=== PATIENT | female | born 1990 | race Caucasian/White ===

== ENCOUNTER 2019-05-04 03:13 | Inpatient (IN) ==
[2019-05-04] MEDS ORDERED: OXYTOCIN 30 UNITS/500 ML BAG IV PRN ×3 (04:06→21:40)
[2019-05-04] MEDS: LACTATED RINGER'S 1,000 ML IV PRN ×3 (04:28→23:46)
[2019-05-04 04:39] LABS: Basophils # (auto) 0.02 K/uL (0-0.2); Basophils % (auto) 0.2 %; Eosinophils # (auto) 0.02 K/uL (0-0.5); Eosinophils % (auto) 0.2 %; Hematocrit (blood only) 36.4 % (37-47); Hemoglobin 12.5 g/dL (12.0-16.0); Immature Granulocytes # (auto) 0.03 K/uL (0.00-0.02); Immature Granulocytes % (auto) 0.3 %; Lymphocytes # (auto) 2.34 K/uL (1.2-3.4); Mean Corpuscular Volume 87.5 fL (80-100); Mean Platelet Volume 12.7 fL (7.4-10.4); Monocytes # (auto) 0.79 K/uL (0.11-0.59); Monocytes % (auto) 7.4 %; Neutrophils # (auto) 7.46 K/uL (1.4-6.5); Neutrophils % (auto) 69.9 %; Platelet Count 191 K/uL (130-400); RDW Coefficient of Variation 15.2 % (11.5-14.5); RDW Standard Deviation 48.3 fL (36.4-46.3); Red Blood Count 4.16 M/uL (4.2-5.4); White Blood Count 10.66 K/uL (4.8-10.8)
[2019-05-04 04:52] LABS: INR 0.9 (0.9-1.1); Partial Thromboplastin Ratio 0.9; Partial Thromboplastin Time 25.4 Seconds (21.0-31.0); Prothrombin Time 9.3 Seconds (9.0-12.0)
[2019-05-04 04:54] LABS: Mean Corpuscular Hgb Conc 34.3 g/dL (32-36)
[2019-05-04 04:58] LABS: Alanine Aminotransferase 14 U/L (12-78); Albumin Level 2.6 gm/dl (3.4-5.0); Aspartate Aminotransferase 23 U/L (15-37); Bilirubin Direct < 0.1 mg/dl (0-0.2); Creatinine Clr Calc Pharmacy 95.1 ml/min; Est GFR (African American) 96.4; Est GFR (Non-African American) 83.1; Uric Acid 6.8 mg/dl (2.6-7.2)
[2019-05-04 05:00] LABS: Protein Creatinine Ratio Urine 11.2 (0-0.2); Total Protein Urine Random 2499.6 mg/dl (0-11.9)
[2019-05-04 05:00] LABS: Alkaline Phosphatase 206 U/L (45-117); Bilirubin,Total 0.1 mg/dl (0.2-1); Total Protein 7.1 gm/dl (6.4-8.2)
[2019-05-04] MEDS ORDERED: MAGNESIUM SULFATE 4GM / WTR 100 ML BAG IV ONE (05:20)
[2019-05-04] MEDS ORDERED: BUPIVACAINE 0.25% 30 ML VIAL ONE (05:41)
[2019-05-04] MEDS ORDERED: ePHEDrine sulfate 50 MG/ML AMP ONE (05:41)
[2019-05-04] MEDS ORDERED: fentaNYL citrate 100 MCG/2 ML VIAL ONE (05:42)
[2019-05-04] MEDS ORDERED: fentaNYL 2MCG/ML ROPIV 1.25MG/ML 100 ML BAG EPI ONE (05:42)
--- NOTE | 2019-05-04 05:54 | History & Physical Report ---
Date of Service May 04, 2019 Assessment & Plan (1) Supervision of normal intrauterine in primigravida: - heart rate tracing category 1 -Patient with elevated blood pressure on admission, +3 protein -Preeclamptic labs drawn, creatinine 0.94, urine protein to creatinine ratio 11. 2 -Patient with preeclampsia -Discussed diagnosis with patient and because of the blood pressure and high proteinuria magnesium will be ordered -Patient desires epidural, anesthesia aware of diagnosis and laboratory results -Anticipate vaginal delivery History of Present Illness Chief Complaint: labor Primary Care Provider: NO PCP The patient is a 29-year-old 1 para 0 with an EDC of 26 April at 41+ weeks gestational age who was admitted in active labor. Patient states her contractions began at approximately 0100 hrs. on day of admission, she denied rupture of membranes or vaginal bleeding. The patient was not complaining of any headache, or right upper quadrant pain. The patient had had a benign course to date. Laboratory values show blood type of O+, antibody negative, rubella immune, hepatitis B negative, she declined cell free DNA screening, declined quad screen, she had a normal 1 hour Glucola x2, and a negative third trimester beta strep culture. 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 Beliefs That Will Affect Care: None marital status: Current Living Situation: Spouse Other Information That Helps Us Care for You: No Feels Safe at Home: Yes Safety Concerns: Feels Safe At This Time Smoking Status: Never smoker Hx Alcohol Use: No Hx Substance Use: No Physical Exam Constitutional: WD/WN, vitals as above Respiratory: Auscultation: lungs clear to auscultation bilaterally Cardiovascular: RRR, no murmur, no edema Extremities: no calf tenderness Gastrointestinal (Abdomen): Gravid, vertex, positive heart tones, estimated weight of 7 pounds Neurologic: patellar DTR's 2+ bilat, sensation intact Genitourinary: OB Exam Monitor Tracing: + category II and + normal FHT variability Cervix: 2-3/80/-2 Results & Data Vital Signs (Past 12 Hours) Vital Signs Temp Pulse Resp BP Pulse Ox 05/04/19 05:45 84 98 05/04/19 05:40 96 H 100 05/04/19 05:26 61 169/80 H 05/04/19 05:15 67 161/78 H 05/04/19 05:04 94 H 169/89 H 05/04/19 04:54 91 H 161/88 H 05/04/19 04:44 66 154/81 H 05/04/19 04:36 70 168/65 H 05/04/19 04:24 67 167/92 H 05/04/19 04:14 65 172/92 H 05/04/19 04:04 75 170/97 H 05/04/19 03:54 71 175/109 H 05/04/19 03:43 66 173/103 H 05/04/19 03:37 36.5 C 67 20 172/98 H
--- NOTE | 2019-05-04 06:03 | Anesthesiology Consultation ---
Date of Service May 04, 2019 Assessment & Plan (1) Encounter for pre-operative examination: Chart Review Chart Review: Patient NOT seen in Pre Admission Testing and Acceptable Risk for Labor Epidural Consults Requested medical & cardiac Pulmonary ASA ASA2 Proposed Anesthesia Anesthesia Type: Labor Epidural Risk / Benefits Reviewed With: PT / POA / Parent / Guardian, Accepts Plan and Informed Consent Obtained History Height/Weight Height: 5 ft 5 in Weight: 82.1 kg Allergies Allergy/AdvReac Type Severity Reaction Status Date / Time No Known Allergies Allergy Unverified 05/04/19 03:30 Medications Home Medications Medication Instructions Recorded Confirmed Last Taken ferrous sulfate [iron] 325 mg PO DAILY 05/04/19 05/04/19 05/03/19 08:00 vit-iron fum-folic ac 1 tab PO DAILY 05/04/19 05/04/19 05/03/19 08:00 [ Vitamin] Active Medications Generic Name Dose Route Start Last Admin Trade Name Freq PRN Reason Stop Dose Admin Lactated Ringer's 1,000 mls @ 125 mls/hr 05/04/19 04:06 05/04/19 06:58 Lr IV 05/06/19 04:05 75 mls/hr .Q8H PRN Infusion L&D Protocol Protocol Magnesium Sulfate 40 gm in 1,000 mls @ 50 mls/hr 05/04/19 06:15 05/04/19 06:58 Magnesium Sulfate / Wtr IV 06/03/19 06:14 50 mls/hr .Q20H VILLA Titration NPO Date Last Intake of Fluids: 05/04/19 Time Last Intake of Fluids: 06:00 Date Last Intake of Solids: 05/03/19 Time Last Intake of Solids: 19:30 Past Medical History Medical History Preeclampsia Exercise / Class Metabolic Activity II 4-5 Yardwork/Stairs/Walk up hill Past Surgical History Surgical History No history of previous surgery Past Anesthesia History No Family Hx of Anesthesia Complications History of PONV Hx of Motion Sickness Social History Smoking Status: Never smoker Hx Alcohol Use: No Hx Substance Use: No substance use type: does not use Review of Systems Patient denies history of abnormal bleeding or bleeding disorder. Patient denies active use of anticoagulants other than low dose aspirin. Patient denies active symptoms of GERD. Patient denies numbness, tingling or weakness in lower extremities. Physical Exam Vital Signs Last Vital Signs Temp 36.5 C 05/04/19 03:37 Pulse 108 H 05/04/19 05:55 Resp 20 05/04/19 05:53 BP 169/80 H 05/04/19 05:26 Pulse Ox 100 05/04/19 05:55 Constitutional not obese ENMT Mouth: no TMJ abnormality and oral opening not small Thyromental Distance: > or= 3.5 Finger Breadths Mallampati Class: II Neck normal visual inspection; neck extension not limited Respiratory normal respiratory effort Auscultation: lungs clear to auscultation bilaterally Cardiovascular Rate/Rhythm: regular rate and regular rhythm Heart Sounds: no murmur Neurologic moves all extremities Motor/Sensory: no sensory deficit Psychiatric Orientation: alert and oriented x 3 Testing Laboratory Results 05/04/19 04:21 05/04/19 04:21 PT 9.3 Seconds (9.0-12.0) 05/04/19 04:21 INR 0.9 (0.9-1.1) 05/04/19 04:21 APTT 25.4 Seconds (21.0-31.0) 05/04/19 04:21
[2019-05-04] MEDS ORDERED: Nursing to Pharmacy Communication ONE ×2 (06:11→16:41)
[2019-05-04] MEDS: MAGNESIUM SULFATE / WTR 40 GM/1,000 ML BAG IV SCH (06:23)
[2019-05-04] MEDS ORDERED: ONDANSETRON INJ 2 MG/ML 2 ML VIAL IV PRN (07:03)
[2019-05-04] MEDS ORDERED: NALBUPHINE HCL INJ 10 MG/ML AMP IV PRN (07:03)
[2019-05-04] MEDS ORDERED: ePHEDrine sulfate 50 MG/ML AMP IV PRN (07:03)
[2019-05-04] MEDS ORDERED: NALOXONE HCL 1 MG in SODIUM CHLORIDE 0.9% 1000ML 1,000 ML IV PRN (07:03)
[2019-05-04] MEDS ORDERED: NALOXONE HCL 0.4 MG/1 ML VIAL/CARP IV PRN (07:03)
[2019-05-04] MEDS ORDERED: DiphenhydrAMINE HCL 50 MG/ML VIAL IV PRN (07:03)
--- NOTE | 2019-05-04 10:42 | Obstetrical Progress Note ---
Date of Service May 04, 2019 Subjective Comfortable with epidural. BP ok. FHT Cat 1 [place] Q 5 min Cervix 4/90/-2 Will start pitocin to augment ctx. Patient agreeable. Results & Data Vital Signs (Past 12 Hours) Vital Signs Temp Pulse Resp BP Pulse Ox 05/04/19 10:40 91 H 97 05/04/19 10:35 98 H 98 05/04/19 10:32 85 133/77 05/04/19 10:30 89 97 05/04/19 10:25 91 H 97 05/04/19 10:20 94 H 97 05/04/19 10:19 91 H 132/78 05/04/19 10:15 104 H 98 05/04/19 10:10 96 H 98 05/04/19 10:05 97 H 98 05/04/19 10:02 90 18 147/86 H 05/04/19 10:00 84 96 05/04/19 09:55 89 96 05/04/19 09:50 91 H 95 05/04/19 09:48 85 150/88 H 05/04/19 09:45 86 95 05/04/19 09:40 90 96 05/04/19 09:35 96 H 96 05/04/19 09:34 85 149/84 H 05/04/19 09:30 94 H 96 05/04/19 09:25 89 97 05/04/19 09:20 88 97 05/04/19 09:18 90 142/84 H 05/04/19 09:15 88 97 05/04/19 09:10 87 98 05/04/19 09:09 18 05/04/19 09:05 89 97 05/04/19 09:04 84 143/83 H 05/04/19 09:00 89 98 05/04/19 08:55 94 H 97 05/04/19 08:50 77 95 05/04/19 08:47 80 138/78 05/04/19 08:45 77 95 05/04/19 08:40 79 96 05/04/19 08:35 77 95 05/04/19 08:33 76 134/75 05/04/19 08:30 77 95 05/04/19 08:25 80 95 05/04/19 08:20 76 94 05/04/19 08:19 74 94 05/04/19 08:17 77 132/73 07/01/19 08:15 71 96 05/04/19 08:13 70 94 05/04/19 08:10 75 95 05/04/19 08:08 73 94 05/04/19 08:05 73 96 05/04/19 08:04 72 133/72 05/04/19 08:02 71 94 05/04/19 08:00 81 18 95 05/04/19 07:56 77 94 05/04/19 07:55 77 95 05/04/19 07:50 76 95 05/04/19 07:47 81 123/76 05/04/19 07:45 80 95 05/04/19 07:40 84 95 05/04/19 07:39 84 93 05/04/19 07:35 85 96 05/04/19 07:32 82 143/81 H 05/04/19 07:30 92 H 96 05/04/19 07:29 87 135/77 05/04/19 07:26 85 140/81 05/04/19 07:25 93 H 97 05/04/19 07:23 94 H 135/72 05/04/19 07:20 88 142/76 H 97 05/04/19 07:17 92 H 145/77 H 05/04/19 07:15 96 H 96 05/04/19 07:14 108 H 16 138/63 05/04/19 07:11 97 H 144/75 H 05/04/19 07:10 101 H 96 05/04/19 07:08 36.8 C 100 H 16 140/72 05/04/19 07:05 105 H 144/70 H 96 05/04/19 07:04 97 H 94 05/04/19 07:02 100 H 145/69 H 05/04/19 07:00 96 H 95 05/04/19 06:59 98 H 141/68 H 05/04/19 06:56 94 H 142/74 H 05/04/19 06:55 94 H 96 05/04/19 06:53 94 H 16 137/77 05/04/19 06:50 83 136/76 96 05/04/19 06:47 81 18 145/82 H 05/04/19 06:45 75 97 05/04/19 06:44 80 155/86 H 07/01/19 06:41 72 18 159/91 H 05/04/19 06:40 70 94 05/04/19 06:38 71 157/91 H 05/04/19 06:35 75 20 158/92 H 87 L 05/04/19 06:32 74 157/95 H 05/04/19 06:30 77 95 05/04/19 06:25 112 H 98 05/04/19 06:22 74 94 05/04/19 06:21 71 18 158/82 H 05/04/19 06:20 87 97 05/04/19 06:15 72 96 05/04/19 06:10 74 98 05/04/19 06:05 76 161/84 H 94 05/04/19 06:04 20 05/04/19 06:00 109 H 100 05/04/19 05:59 74 163/84 H 05/04/19 05:55 108 H 100 05/04/19 05:53 20 05/04/19 05:50 78 99 05/04/19 05:45 84 98 05/04/19 05:40 96 H 100 05/04/19 05:26 61 169/80 H 05/04/19 05:15 67 161/78 H 05/04/19 05:04 94 H 169/89 H 05/04/19 04:54 91 H 161/88 H 05/04/19 04:44 66 154/81 H 05/04/19 04:36 70 168/65 H 05/04/19 04:24 67 167/92 H 05/04/19 04:14 65 172/92 H 05/04/19 04:04 75 170/97 H 05/04/19 03:54 71 175/109 H 05/04/19 03:43 66 173/103 H 05/04/19 03:37 36.5 C 67 20 172/98 H
[2019-05-04] MEDS: fentaNYL 2MCG/ML ROPIV 1.25MG/ML 100 ML BAG EPI PRN ×2 (13:46→18:31)
--- NOTE | 2019-05-04 16:52 | Obstetrical Progress Note ---
Date of Service May 04, 2019 Subjective Uncomfortable with contractions. FHT Cat 1 [place] Q 4 SVE 9/100/-1. Forebag AROM'd with thin mec staining. Results & Data Vital Signs (Past 12 Hours) Vital Signs Temp Pulse Resp BP Pulse Ox 05/04/19 16:50 101 H 98 05/04/19 16:47 100 H 133/91 05/04/19 16:45 109 H 98 05/04/19 16:40 103 H 97 05/04/19 16:35 92 H 87 L 05/04/19 16:34 92 H 133/95 05/04/19 16:30 93 H 87 L 05/04/19 16:25 110 H 97 05/04/19 16:20 98 H 96 05/04/19 16:19 100 H 146/87 H 05/04/19 16:15 93 H 96 05/04/19 16:11 92 H 87 L 05/04/19 16:10 105 H 97 05/04/19 16:05 115 H 97 05/04/19 16:03 101 H 157/93 H 05/04/19 16:01 97 H 87 L 05/04/19 16:00 95 H 96 05/04/19 15:55 106 H 96 05/04/19 15:50 114 H 97 05/04/19 15:48 113 H 165/101 H 05/04/19 15:45 115 H 99 05/04/19 15:40 121 H 98 05/04/19 15:35 110 H 96 05/04/19 15:33 105 H 16 146/95 H 05/04/19 15:30 103 H 95 05/04/19 15:25 105 H 96 05/04/19 15:20 102 H 96 05/04/19 15:17 100 H 161/83 H 05/04/19 15:16 102 H 182/88 H 05/04/19 15:15 104 H 96 05/04/19 15:10 107 H 97 05/04/19 15:07 36.5 C 16 05/04/19 15:05 102 H 98 05/04/19 15:03 100 H 158/90 H 05/04/19 15:00 98 H 16 96 05/04/19 14:55 95 H 97 05/04/19 14:50 101 H 98 05/04/19 14:48 95 H 143/89 H 05/04/19 14:45 94 H 98 05/04/19 14:40 95 H 98 05/04/19 14:35 99 H 98 05/04/19 14:33 97 H 16 153/88 H 05/04/19 14:30 95 H 98 05/04/19 14:25 95 H 98 05/04/19 14:20 94 H 96 05/04/19 14:19 95 H 141/84 H 05/04/19 14:15 93 H 97 05/04/19 14:10 97 H 98 05/04/19 14:05 92 H 97 05/04/19 14:02 90 18 143/86 H 05/04/19 14:00 92 H 98 05/04/19 13:55 96 H 97 05/04/19 13:50 100 H 98 05/04/19 13:45 96 H 98 05/04/19 13:40 92 H 97 05/04/19 13:35 93 H 97 05/04/19 13:34 91 H 18 142/88 H 05/04/19 13:30 93 H 97 05/04/19 13:25 93 H 97 05/04/19 13:20 95 H 97 05/04/19 13:17 95 H 141/88 H 05/04/19 13:15 97 H 98 05/04/19 13:10 92 H 98 05/04/19 13:05 93 H 97 05/04/19 13:03 36.7 C 95 H 18 140/89 05/04/19 13:00 95 H 97 05/04/19 12:55 97 H 97 05/04/19 12:50 91 H 97 05/04/19 12:49 96 H 147/92 H 05/04/19 12:45 94 H 97 05/04/19 12:40 101 H 97 05/04/19 12:35 96 H 97 05/04/19 12:33 98 H 165/100 H 05/04/19 12:30 104 H 18 98 05/04/19 12:25 101 H 97 05/04/19 12:20 104 H 98 05/04/19 12:17 102 H 143/89 H 05/04/19 12:15 103 H 98 05/04/19 12:10 90 96 05/04/19 12:05 95 H 97 05/04/19 12:02 92 H 137/75 05/04/19 12:00 95 H 18 97 05/04/19 11:55 86 96 05/04/19 11:50 94 H 97 05/04/19 11:47 90 134/76 05/04/19 11:45 87 96 05/04/19 11:40 94 H 97 05/04/19 11:35 95 H 97 05/04/19 11:33 86 129/75 05/04/19 11:30 97 H 97 05/04/19 11:25 94 H 97 05/04/19 11:20 96 H 97 05/04/19 11:17 98 H 133/82 05/04/19 11:15 89 97 05/04/19 11:10 90 97 05/04/19 11:05 92 H 97 05/04/19 11:03 36.7 C 86 18 130/75 05/04/19 11:00 92 H 97 05/04/19 10:55 93 H 97 05/04/19 10:50 92 H 97 05/04/19 10:47 86 129/74 05/04/19 10:45 87 97 05/04/19 10:40 91 H 97 05/04/19 10:35 98 H 98 05/04/19 10:32 85 18 133/77 05/04/19 10:30 89 97 05/04/19 10:25 91 H 97 05/04/19 10:20 94 H 97 05/04/19 10:19 91 H 132/78 05/04/19 10:15 104 H 98 05/04/19 10:10 96 H 98 05/04/19 10:05 97 H 98 05/04/19 10:02 36.7 C 90 18 147/86 H 05/04/19 10:00 84 96 05/04/19 09:55 89 96 05/04/19 09:50 91 H 95 05/04/19 09:48 85 150/88 H 05/04/19 09:45 86 95 05/04/19 09:40 90 96 05/04/19 09:35 96 H 96 05/04/19 09:34 85 149/84 H 05/04/19 09:30 94 H 96 05/04/19 09:25 89 97 05/04/19 09:20 88 97 05/04/19 09:18 90 142/84 H 05/04/19 09:15 88 97 05/04/19 09:10 87 98 05/04/19 09:09 18 05/04/19 09:05 89 97 05/04/19 09:04 84 18 143/83 H 05/04/19 09:00 89 98 05/04/19 08:55 94 H 97 05/04/19 08:50 77 95 05/04/19 08:47 80 138/78 05/04/19 08:45 77 95 05/04/19 08:40 79 96 05/04/19 08:35 77 95 05/04/19 08:33 76 16 134/75 05/04/19 08:30 77 95 05/04/19 08:25 80 95 05/04/19 08:20 76 94 05/04/19 08:19 74 94 05/04/19 08:17 77 16 132/73 05/04/19 08:15 71 96 05/04/19 08:13 70 94 05/04/19 08:10 75 95 05/04/19 08:08 73 94 05/04/19 08:05 73 96 05/04/19 08:04 72 16 133/72 05/04/19 08:02 71 94 05/04/19 08:00 81 18 95 05/04/19 07:56 77 94 05/04/19 07:55 77 95 05/04/19 07:50 76 95 05/04/19 07:47 81 123/76 05/04/19 07:45 80 95 05/04/19 07:40 84 95 05/04/19 07:39 84 93 05/04/19 07:35 85 96 05/04/19 07:32 82 16 143/81 H 05/04/19 07:30 92 H 96 05/04/19 07:29 87 135/77 05/04/19 07:26 85 140/81 05/04/19 07:25 93 H 97 05/04/19 07:23 94 H 135/72 05/04/19 07:20 88 142/76 H 97 05/04/19 07:17 92 H 145/77 H 05/04/19 07:15 96 H 96 05/04/19 07:14 108 H 16 138/63 07/01/19 07:11 97 H 144/75 H 05/04/19 07:10 101 H 96 05/04/19 07:08 36.8 C 100 H 16 140/72 05/04/19 07:05 105 H 144/70 H 96 05/04/19 07:04 97 H 94 05/04/19 07:02 100 H 145/69 H 05/04/19 07:00 96 H 95 05/04/19 06:59 98 H 141/68 H 05/04/19 06:56 94 H 142/74 H 05/04/19 06:55 94 H 96 05/04/19 06:53 94 H 16 137/77 05/04/19 06:50 83 136/76 96 05/04/19 06:47 81 18 145/82 H 05/04/19 06:45 75 97 05/04/19 06:44 80 155/86 H 05/04/19 06:41 72 18 159/91 H 05/04/19 06:40 70 94 05/04/19 06:38 71 157/91 H 05/04/19 06:35 75 20 158/92 H 87 L 05/04/19 06:32 74 157/95 H 05/04/19 06:30 77 95 05/04/19 06:25 112 H 98 05/04/19 06:22 74 94 05/04/19 06:21 71 18 158/82 H 05/04/19 06:20 87 97 05/04/19 06:15 72 96 05/04/19 06:10 74 98 05/04/19 06:05 76 161/84 H 94 05/04/19 06:04 20 05/04/19 06:00 109 H 100 05/04/19 05:59 74 163/84 H 05/04/19 05:55 108 H 100 05/04/19 05:53 20 05/04/19 05:50 78 99 05/04/19 05:45 84 98 05/04/19 05:40 96 H 100 05/04/19 05:26 61 169/80 H 05/04/19 05:15 67 161/78 H 05/04/19 05:04 94 H 169/89 H 05/04/19 04:54 91 H 161/88 H
--- NOTE | 2019-05-04 21:00 | Anesthesia Procedure Note ---
Date of Service May 04, 2019 Anesthesia Post Epidural Note Vital Signs Vital Signs: Temp Pulse Resp BP Pulse Ox 36.6 C 103 H 18 153/87 H 96 05/04/19 19:21 05/04/19 20:55 05/04/19 20:30 05/04/19 20:47 05/04/19 20:55 Pain Intensity Bilateral Abdomen: Pain Intensity: 2 Notes Mental Status: alert / awake / arousable and participated in evaluation Nausea / Vomiting: adequately controlled Pain: adequately controlled Airway Patency, RR, SpO2: stable & adequate BP & HR: stable & adequate Hydration State: stable & adequate Neuraxial Anesthesia: was administered and sensory block is resolving Anesthetic Complications: no major complications apparent Epidural: Removed without complications and With tip intact
--- NOTE | 2019-05-04 21:08 | Procedure Note ---
Vaginal Delivery Summary Date of Service May 04, 2019 Vaginal Delivery Summary Vaginal Delivery Summary: Pre-delivery diagnoses: 29yo @ 41 1/7, spontaneous labor, preeclampsia with severe features (BP severe range) Post-delivery diagnoses: same + 2nd degree perineal laceration Procedure: spontaneous vaginal delivery, repair of 2nd degree perineal laceration Surgeon: Maribel Ridley DO Complications: none Findings: Viable female . Apgars: 8/9 . Weight pending, please see nursery records Estimated blood loss: 300ml Description of delivery: The patient progressed to complete with epidural anesthesia. She then began to push. She spontaneously vaginally delivered a viable female from the cephalic presentation. The head delivered in TONE position. No nuchal cord noted. The anterior shoulder delivered, followed by the posterior shoulder, followed by the body. The baby was placed on mother's abdomen and a spontaneous cry was heard. The cord was doubly clamped and cut, and the baby was handed off to waiting nursery nurse. A segment was retained for cord gases. Cord blood was obtained. The placenta was delivered spontaneously intact with a 3-vessel cord. The uterus and vagina were swept of clots and debris. IV pitocin was given. The uterus became firm. The cervix, vagina, and perineum were inspected and a 2nd degree perineal laceration was noted, and a right vaginal sulcal tear. Both were repaired in standard fashion with 3-0 vicryl. Excellent hemostasis was observed. The mother and baby are recovering in stable and good condition in the room. Sponge, needle, and instrument counts were correct x 2. Maribel Ridley DO [facility]
[2019-05-04] MEDS ORDERED: BENZOCAINE 20% AER SPR 82.5 GM CAN EXT PRN (21:40)
[2019-05-04] MEDS ORDERED: HYDROCORTISONE ACETATE 25 MG SUPP PR PRN (21:40)
[2019-05-04] MEDS ORDERED: SUPERCREAM 0.870% 15 GM JAR EXT PRN (21:40)
[2019-05-04] MEDS ORDERED: ACETAMINOPHEN 325 MG TAB PO PRN (21:40)
[2019-05-04] MEDS ORDERED: OXYCODONE/ACETAMINOPHEN 5mg/325mg TAB PO PRN (21:40)
[2019-05-04] MEDS ORDERED: DIPHTHERIA/TETANUS/PERTUSSIS 0.5 ML SYR/VIAL IM ONE (21:40)
[2019-05-04] MEDS ORDERED: BISACODYL 10 MG SUPP PR PRN (21:40)
[2019-05-04] MEDS ORDERED: LABETALOL HCL IV 5 MG/ML 20ML IV STA (21:41)
[2019-05-04] MEDS ORDERED: CEFAZOLIN 1000MG 1,000 MG/7.5 ML SYR IV SCH (22:15)
[2019-05-05 00:35] LABS: Hemoglobin 11.4 g/dL (12.0-16.0); Mean Corpuscular Hgb Conc 33.5 g/dL (32-36); Mean Platelet Volume 12.8 fL (7.4-10.4); Platelet Count 200 K/uL (130-400); RDW Coefficient of Variation 15.6 % (11.5-14.5); RDW Standard Deviation 49.3 fL (36.4-46.3); Red Blood Count 3.91 M/uL (4.2-5.4)
[2019-05-05 01:02] LABS: Albumin Globulin Ratio 0.5 (0.9-2); Albumin Level 2.1 gm/dl (3.4-5.0); Bilirubin,Total 0.3 mg/dl (0.2-1); Calcium 7.1 mg/dl (8.5-10.1); Est GFR (African American) 67.6; Est GFR (Non-African American) 58.3; Globulin 3.8 gm/dl (2.5-4.0); Magnesium Therapeutic L&D Only 7.2 mg/dL (4.0-8.0); Potassium 3.6 mmol/L (3.5-5.1); Total Protein 5.9 gm/dl (6.4-8.2)
[2019-05-05] MEDS: IBUPROFEN 600 MG TAB PO PRN ×2 (02:09→16:40)
[2019-05-05 06:50] LABS: Hematocrit (blood only) 28.4 % (37-47); Hemoglobin 9.6 g/dL (12.0-16.0); Mean Corpuscular Hgb Conc 33.8 g/dL (32-36); Mean Corpuscular Volume 86.6 fL (80-100); Mean Platelet Volume 12.2 fL (7.4-10.4); Platelet Count 182 K/uL (130-400); RDW Coefficient of Variation 15.7 % (11.5-14.5); RDW Standard Deviation 50.3 fL (36.4-46.3); Red Blood Count 3.28 M/uL (4.2-5.4); White Blood Count 19.07 K/uL (4.8-10.8)
[2019-05-05] MEDS: PRENATAL VITAMIN 1 TAB PO SCH (07:24)
[2019-05-05] MEDS: DOCUSATE SODIUM 100 MG CAP PO SCH ×2 (07:24→20:28)
[2019-05-05 07:26] LABS: Albumin Level 1.8 gm/dl (3.4-5.0); BUN Creatinine Ratio 15.8 (10-20); Calcium 6.9 mg/dl (8.5-10.1); Creatinine Clr Calc Pharmacy 88.5 ml/min; Est GFR (African American) 88.3; Est GFR (Non-African American) 76.2; Magnesium Therapeutic L&D Only 6.1 mg/dL (4.0-8.0); Potassium 3.8 mmol/L (3.5-5.1)
[2019-05-05 07:28] LABS: Albumin Globulin Ratio 0.5 (0.9-2); Bilirubin,Total 0.3 mg/dl (0.2-1); Globulin 3.3 gm/dl (2.5-4.0); Total Protein 5.1 gm/dl (6.4-8.2)
--- NOTE | 2019-05-05 07:43 | Obstetrical Progress Note ---
Date of Service May 05, 2019 Assessment & Plan (1) Vaginal delivery: PPD#1 doing well. Magnesium continues. BP has been normal since last night, rec'd 1 dose labetalol IV 20mg last night. Labs are trending normal - platelets/LFTs normal, and Cr was 1.26 last night, today is 1.01. Good urine output. Continue routine and preeclampsia care. Subjective Ambulation: limited ambulation Voiding: aguirre catheter in place Passing Gas:: Yes Diet Tolerance:: clear liquids Lochia:: Moderate Feeding Type:: breast feeding Feeling well - no concerns. Feels like she is breathing well, denies chest pain/headache. Review of Systems All systems reviewed & are unremarkable except as noted in HPI & below Physical Exam Gen: AAOx3 NAD CV: RRR L: CTAB Abd: soft, NTTP. fundus firm, below umbilicus. Ext: EPCs on, 1+ edema. 2+ DTR Results & Data Vital Signs (Past 12 Hours) Vital Signs Temp Pulse Resp BP Pulse Ox 05/05/19 07:38 91 H 99 05/05/19 07:33 90 98 05/05/19 07:28 91 H 97 05/05/19 07:23 92 H 98 05/05/19 07:18 89 98 05/05/19 07:13 99 H 97 05/05/19 07:08 96 H 98 05/05/19 07:05 91 H 126/74 05/05/19 07:03 93 H 97 05/05/19 06:58 93 H 97 05/05/19 06:53 91 H 96 05/05/19 06:48 92 H 96 05/05/19 06:43 96 H 96 05/05/19 06:38 99 H 97 05/05/19 06:33 89 96 05/05/19 06:28 97 H 96 05/05/19 06:23 90 94 05/05/19 06:18 97 H 95 05/05/19 06:13 94 H 95 05/05/19 06:08 89 95 05/05/19 06:05 89 135/70 05/05/19 06:03 92 H 94 05/05/19 06:00 18 05/05/19 05:58 91 H 94 05/05/19 05:53 91 H 94 05/05/19 05:48 95 H 94 05/05/19 05:43 91 H 94 05/05/19 05:38 89 94 05/05/19 05:33 92 H 94 05/05/19 05:28 94 H 95 05/05/19 05:23 93 H 95 05/05/19 05:18 101 H 98 05/05/19 05:13 101 H 98 05/05/19 05:08 101 H 97 05/05/19 05:05 100 H 132/73 05/05/19 05:03 104 H 97 05/05/19 05:00 18 05/05/19 04:58 101 H 96 05/05/19 04:53 103 H 97 05/05/19 04:48 100 H 97 05/05/19 04:43 100 H 96 05/05/19 04:38 109 H 96 05/05/19 04:33 101 H 96 05/05/19 04:28 93 H 95 05/05/19 04:23 92 H 95 05/05/19 04:18 92 H 94 05/05/19 04:13 92 H 95 05/05/19 04:08 91 H 95 05/05/19 04:05 90 114/56 L 05/05/19 04:03 93 H 95 05/05/19 04:00 36.9 C 18 05/05/19 03:58 94 H 96 05/05/19 03:53 101 H 96 05/05/19 03:48 103 H 97 05/05/19 03:43 98 H 96 05/05/19 03:38 96 H 96 05/05/19 03:33 103 H 98 05/05/19 03:28 107 H 96 05/05/19 03:23 109 H 96 05/05/19 03:18 109 H 96 05/05/19 03:13 112 H 97 05/05/19 03:08 109 H 96 05/05/19 03:05 112 H 134/71 05/05/19 03:03 114 H 97 05/05/19 03:00 18 05/05/19 02:58 113 H 97 05/05/19 02:53 117 H 97 05/05/19 02:48 119 H 97 05/05/19 02:43 123 H 99 05/05/19 02:38 112 H 97 05/05/19 02:33 117 H 98 05/05/19 02:28 118 H 99 05/05/19 02:23 122 H 100 05/05/19 02:18 118 H 99 05/05/19 02:13 103 H 100 05/05/19 02:08 104 H 100 05/05/19 02:05 106 H 140/83 05/05/19 02:03 107 H 100 05/05/19 02:00 18 05/05/19 01:58 103 H 100 05/05/19 01:53 91 H 99 05/05/19 01:48 92 H 99 05/05/19 01:43 94 H 100 05/05/19 01:38 95 H 100 05/05/19 01:33 91 H 99 05/05/19 01:28 97 H 99 05/05/19 01:20 96 H 98 05/05/19 01:15 96 H 98 05/05/19 01:10 97 H 98 05/05/19 01:05 97 H 98 05/05/19 01:02 97 H 132/73 05/05/19 01:00 96 H 18 98 05/05/19 00:55 96 H 98 05/05/19 00:50 97 H 98 05/05/19 00:47 95 H 128/74 05/05/19 00:45 105 H 99 05/05/19 00:40 96 H 98 05/05/19 00:35 95 H 98 05/05/19 00:32 95 H 121/69 05/05/19 00:30 95 H 97 05/05/19 00:25 95 H 97 05/05/19 00:20 94 H 98 05/05/19 00:17 91 H 123/69 05/05/19 00:15 95 H 98 05/05/19 00:10 93 H 99 05/05/19 00:05 96 H 99 05/05/19 00:02 97 H 133/75 05/05/19 00:00 97 H 18 100 05/04/19 23:55 100 H 100 05/04/19 23:50 100 H 100 05/04/19 23:47 98 H 139/81 05/04/19 23:45 102 H 100 05/04/19 23:40 101 H 99 05/04/19 23:35 102 H 100 05/04/19 23:32 100 H 147/81 H 05/04/19 23:30 99 H 100 05/04/19 23:25 98 H 100 05/04/19 23:20 90 99 05/04/19 23:17 93 H 143/80 H 05/04/19 23:15 100 H 98 05/04/19 23:10 96 H 99 05/04/19 23:05 36.9 C 94 H 99 05/04/19 23:03 95 H 130/74 05/04/19 23:00 98 H 18 100 05/04/19 22:55 101 H 99 05/04/19 22:50 101 H 99 05/04/19 22:47 96 H 146/85 H 05/04/19 22:45 100 H 99 05/04/19 22:40 94 H 100 05/04/19 22:35 94 H 100 05/04/19 22:32 96 H 149/87 H 05/04/19 22:30 98 H 18 99 05/04/19 22:25 96 H 100 05/04/19 22:23 93 H 163/93 H 05/04/19 22:20 93 H 100 05/04/19 22:17 93 H 149/90 H 05/04/19 22:15 90 100 05/04/19 22:10 93 H 99 05/04/19 22:05 102 H 98 05/04/19 22:02 99 H 159/94 H 05/04/19 22:00 98 H 18 161/97 H 99 05/04/19 21:55 99 H 100 05/04/19 21:50 98 H 99 05/04/19 21:47 98 H 166/98 H 05/04/19 21:45 98 H 18 99 05/04/19 21:40 101 H 100 05/04/19 21:36 101 H 168/100 H 05/04/19 21:35 104 H 100 05/04/19 21:32 106 H 166/94 H 05/04/19 21:30 118 H 18 99 05/04/19 21:25 120 H 98 05/04/19 21:20 118 H 99 05/04/19 21:17 101 H 159/91 H 05/04/19 21:15 102 H 18 98 05/04/19 21:14 103 H 160/92 H 05/04/19 21:10 113 H 98 05/04/19 21:09 106 H 168/96 H 05/04/19 21:05 107 H 99 05/04/19 21:03 106 H 169/100 H 05/04/19 21:00 103 H 18 99 05/04/19 20:55 103 H 96 05/04/19 20:50 100 H 100 05/04/19 20:47 103 H 153/87 H 05/04/19 20:45 102 H 94 05/04/19 20:40 101 H 88 L 05/04/19 20:35 116 H 95 05/04/19 20:33 107 H 138/85 89 L 05/04/19 20:30 113 H 18 99 05/04/19 20:25 105 H 98 05/04/19 20:20 110 H 98 05/04/19 20:15 98 H 97 05/04/19 20:10 102 H 97 05/04/19 20:05 101 H 98 05/04/19 20:03 96 H 143/82 H 05/04/19 20:00 105 H 18 98 05/04/19 19:55 110 H 98 05/04/19 19:50 113 H 98 05/04/19 19:45 109 H 99
[2019-05-05] MEDS: MAGNESIUM SULFATE / WTR 40 GM/1,000 ML BAG IV SCH ×3 (08:31→19:08)
[2019-05-05] MEDS: LACTATED RINGER'S 1,000 ML IV PRN (10:50)
[2019-05-05] MEDS ORDERED: BISACODYL 5 MG TABEC PO SCH (20:00)
--- NOTE | 2019-05-06 08:22 | Obstetrical Progress Note ---
Date of Service May 06, 2019 Assessment & Plan (1) Vaginal delivery: Doing well. Routine care. (2) Elevated blood pressure affecting in third trimester, antepartum: BPS stable, rare 140/90. No s/s of pet. Will need to watch off mag to ma ke sure doesn't have increased bps off mag. Day #:: 2 Subjective Ambulation: ambulating normally Voiding: no voiding problems Passing Gas:: Yes Diet Tolerance:: regular diet Lochia:: Small Feeding Type:: breast feeding patient denies s/s of pet Physical Exam Constitutional WD/WN, vitals as above Cardiovascular Extremities: + edema (+1); no calf tenderness Gastrointestinal (Abdomen) soft, nt , nd, no ruq pain fundus firm, nt at u Results & Data Vital Signs (Past 12 Hours) Vital Signs Temp Pulse Pulse Resp BP Pulse Ox 05/06/19 07:55 36.5 C 80 16 142/93 H 05/06/19 03:00 37.0 C 94 H 18 132/82 05/05/19 23:15 36.9 C 94 H 20 137/88 05/05/19 21:05 36.4 C L 94 H 18 142/83 H 05/05/19 20:39 96 H 95 05/05/19 20:34 98 H 95 05/05/19 20:29 101 H 96 05/05/19 20:24 103 H 95
[2019-05-06] MEDS: DOCUSATE SODIUM 100 MG CAP PO SCH ×2 (08:49→20:44)
[2019-05-06] MEDS: PRENATAL VITAMIN 1 TAB PO SCH (08:49)
[2019-05-06] MEDS: IBUPROFEN 600 MG TAB PO PRN (17:44)
[2019-05-06] MEDS ORDERED: LABETALOL HCL 100 MG TAB PO ONE (22:45)
--- NOTE | 2019-05-07 07:01 | Obstetrical Progress Note ---
Date of Service May 07, 2019 Assessment & Plan (1) Encounter for care and examination after delivery: patient is asymptomatic but because of persistent elevation of blood pressure, labetalol was started last evening. will monitor BP this morning & plan discharge later today if BP is stable on labetalol 100mg bid follow up for BP check Tuesday 05/08 in the office. Present on Admission?: No (2) Pre-eclampsia affecting , antepartum: Present on Admission?: Yes Day #:: 2 Subjective Ambulation: ambulating normally Voiding: no voiding problems Passing Gas:: Yes Diet Tolerance:: regular diet Lochia:: Small Feeding Type:: breast feeding no PIH symptoms. BP's were elevated yesterday afternoon & evening. Review of Systems All systems reviewed & are unremarkable except as noted in HPI & below Physical Exam Constitutional WD/WN, vitals as above Gastrointestinal (Abdomen) normal bowel sounds, soft, nontender, no hepatosplenomegaly Musculoskeletal no calf tenderness Genitourinary OB Exam Abdomen: + fundal height Fundus: + firm and + relation to umbilicus (2 below U) Results & Data Vital Signs (Past 12 Hours) Vital Signs Temp Pulse Pulse Resp BP BP Pulse Ox 05/07/19 03:15 63 139/82 05/07/19 03:00 36.4 C L 74 18 159/96 H 99 05/06/19 23:20 67 132/82 05/06/19 23:00 36.7 C 84 18 163/100 H 97
[2019-05-07] MEDS ORDERED: LABETALOL HCL 100 MG TAB PO SCH (09:00)
[2019-05-07] MEDS ORDERED: LABETALOL HCL 200 MG TAB PO SCH (09:00)
[2019-05-07] MEDS: PRENATAL VITAMIN 1 TAB PO SCH (09:29)
[2019-05-07] MEDS: DOCUSATE SODIUM 100 MG CAP PO SCH (09:29)
== END 2019-05-07 14:25 | disposition home or self-care (01) | DRG 807 ==
LOC: OPB 03:13 → 4S1 03:15 → 4S2 05-05 21:12

== ENCOUNTER 2022-10-14 14:34 | Inpatient (IN) ==
[2022-10-14] MEDS ORDERED: LIDOCAINE 1% LOCAL 20 ML VIAL INFIL PRN (14:49)
[2022-10-14] MEDS ORDERED: OXYTOCIN 30 UNITS/500 ML BAG IV PRN ×3 (14:49→19:20)
[2022-10-14] MEDS: LACTATED RINGER'S 1,000 ML IV PRN ×2 (14:55→15:48)
--- NOTE | 2022-10-14 15:05 | History & Physical Report ---
Date of Service October 14, 2022 Assessment & Plan (1) : Plan: 32 yo at 40 3/7 wga presents in labor VSS Fetus cat 2 but reassuring w/ mod variability Labor - laboring spontaneously GBS neg desires epidural Admission and Anticipated Discharge Date Admission Date: October 14, 2022 History of Present Illness Chief Complaint: labor Primary Care Provider: NO PCP 32 yo at 40 3/7 wga presents with contractions increasing in frequency and intensity since labor check this AM. Denies LOF, VB PNI: Hx pre-eclampsia Rubella nonimmune Past [employer] Hx: G1 2019 at 41 wks G2 current regular cycles denies hx STIs 03/2022 neg cotest Allergies Allergy/AdvReac Type Severity Reaction Status Date / Time No Known Drug Allergies Allergy Unknown Verified 10/14/22 14:50 Home Medications Medication Instructions Recorded Confirmed Type vitamins-iron fumarate 27 1 tab PO DAILY 06/19/19 10/14/22 History mg iron-folic acid 0.8 mg tablet ( Vitamin) aspirin 81 mg chewable tablet 81 mg PO DAILY 04/19/22 10/14/22 History ferrous sulfate 325 mg (65 mg 325 mg PO 3XWK 10/14/22 10/14/22 History iron) tablet (Iron (ferrous sulfate)) Patient History Medical History (Updated 10/14/22 @ 15:08 by Cassie Bledsoe MD) History of chicken pox Preeclampsia Surgical History No history of previous surgery Family History Denies family history of Ovarian cancer Breast cancer Colorectal cancer Social History Smoking Status: Never smoker Hx Alcohol Use: No Hx Substance Use: No Preferred Language: Sami Communication Ability: Effective 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 Beliefs That Will Affect Care: None marital status: marital status details: Caio Washburn (30) [phone] Current Living Situation: Spouse and Family Current Living Situation Comment: lives with spouse, daughter, no pets current occupational status: employed current occupation: Grad Asst [employer] Other Information That Helps Us Care for You: No Feels Safe at Home: Yes Assistive Devices: Glasses Physical Exam Genitourinary: OB Exam Monitor Tracing: + external FHT monitor used, + external uterine monitor used and + category II (but reassuring) SVE 590/-1 by nursing Results & Data ([facility]) Vital Signs (Past 12 Hours) Vital Signs Temp Pulse Resp BP 10/14/22 14:51 75 139/73 10/14/22 14:46 98.1 F 75 20 139/73 Laboratory Results OB Labs: Blood Type O Positive 03/22/22 Antibody Screen NEGATIVE 03/22/22 Hemoglobin 11.2 g/dl (12.0-16.0) L 07/25/22 Hematocrit 33.5 % (34.1-44.9) L 07/25/22 Mean Corpuscular Volume 80.5 fL (80-100) 03/22/22 Platelet Count 406 K/uL (130-400) H 03/22/22 Rubella IgG Antibody Non Immune (Immune) L 03/22/22 Rapid Plasma Reagin Nonreactive (Nonreactive) 03/22/22 Hepatitis B Surface Antigen Neg (Neg) 10/13/18 Hepatitis B Surface Antigen. NON-REACTIVE (NON-REACTIVE) 03/22/22 Hepatitis C Antibody (EIA) NON-REACTIVE (NON-REACTIVE) 03/22/22 HIV (1&2) Ab and P24 Ag, 4th Gener Neg (Neg) 10/13/18 HIV (1&2) Ag and Ab Confirmation NON-REACTIVE (NON-REACTIVE) 03/22/22 Glucose 1 Hour 50 gm Load 121 mg/dl (70-130) 07/25/22 OB Optional Labs: Chlamydia trachomatis RNA NOT DETECTED (NOT DETECTED) 03/22/22 Neisseria gonorrhoeae RNA NOT DETECTED (NOT DETECTED) 03/22/22 Labs Reviewed: declines quad/afp - sln GBS neg Diagnostic Findings post plac Coding Level of Care Code None Diagnoses Z34.90
[2022-10-14] MEDS ORDERED: fentaNYL citrate 100 MCG/2 ML VIAL ONE ×2 (15:06→18:06)
[2022-10-14] MEDS ORDERED: ePHEDrine sulfate 50 MG/ML AMP ONE (15:06)
[2022-10-14] MEDS ORDERED: SODIUM CHLORIDE 0.9% INJ 10 ML VIAL ONE (15:06)
[2022-10-14] MEDS ORDERED: BUPIVACAINE 0.25% 30 ML VIAL ONE (15:07)
[2022-10-14] MEDS ORDERED: fentaNYL 2MCG/ML ROPIVACAINE 1.25MG/ML 100 ML BAG EPI ONE (15:07)
[2022-10-14] MEDS ORDERED: LIDOCAINE 2%/EPINEPHRINE 1:200,000 20 ML SDV ONE ×2 (15:07→18:06)
[2022-10-14 15:35] LABS: Hematocrit (blood only) 36.1 % (34.1-44.9); Hemoglobin 12.2 g/dl (12.0-16.0); Mean Corpuscular Hemoglobin 29.5 pg (25.0-34.0); Mean Corpuscular Hgb Conc 33.8 g/dL (32.0-36.0); Mean Corpuscular Volume 87.2 fL (80.0-100.0); Mean Platelet Volume 11.1 fL (9.4-12.3); Platelet Count 282 K/uL (130-400); RDW Coefficient of Variation 13.8 % (11.5-14.5); RDW Standard Deviation 43.7 fL (36.4-46.3); Red Blood Count 4.14 M/uL (3.93-5.22); White Blood Count 15.68 K/ul (4.8-10.8)
--- NOTE | 2022-10-14 15:57 | Anesthesiology Consultation ---
Date of Service October 14, 2022 Assessment & Plan Chart Review Chart Review: Acceptable Risk for Labor Epidural Consults Requested none ASA ASA2 Proposed Anesthesia Anesthesia Type: Labor Epidural Risk / Benefits Reviewed With: PT / POA / Parent / Guardian, Accepts Plan and Informed Consent Obtained History Height/Weight Height: 5 ft 5 in Weight: 76.657 kg Allergies Allergy/AdvReac Type Severity Reaction Status Date / Time No Known Drug Allergies Allergy Unknown Verified 10/14/22 14:50 Medications Home Medications Medication Instructions Recorded Confirmed Last Taken vitamins-iron fumarate 27 1 tab PO DAILY 06/19/19 10/14/22 10/13/22 21:00 mg iron-folic acid 0.8 mg tablet ( Vitamin) aspirin 81 mg chewable tablet 81 mg PO DAILY 04/19/22 10/14/22 10/13/22 21:00 ferrous sulfate 325 mg (65 mg 325 mg PO 3XWK 10/14/22 10/14/22 10/13/22 21:00 iron) tablet (Iron (ferrous sulfate)) Active Medications Generic Name Dose Route Start Last Admin Trade Name Freq PRN Reason Stop Dose Admin Lactated Ringer's 1,000 mls @ 125 mls/hr 10/14/22 14:49 10/14/22 15:48 Lr IV 10/16/22 14:48 999 mls/hr .Q8H PRN Administration L&D Protocol Protocol Past Medical History Medical History History of chicken pox Preeclampsia Exercise / Class Metabolic Activity II 4-5 Yardwork/Stairs/Walk up hill Past Family History Family History Denies family history of Ovarian cancer Breast cancer Colorectal cancer Past Surgical History Surgical History No history of previous surgery Past Anesthesia History No Hx of Anesthesia Complications and No Family Hx of Anesthesia Complications History of PONV No Hx of PONV and No Hx of Motion Sickness Social History Smoking Status: Never smoker Hx Alcohol Use: No Hx Substance Use: No substance use type: does not use Physical Exam Vital Signs Last Vital Signs Temp 98.1 F 10/14/22 14:46 Pulse 93 H 10/14/22 15:54 Resp 20 10/14/22 14:46 BP 139/73 10/14/22 14:51 Pulse Ox 98 10/14/22 15:54 ENMT Mouth: no dentition abnormality Thyromental Distance: > or= 3.5 Finger Breadths Mallampati Class: II Neck normal visual inspection Respiratory normal respiratory effort Auscultation: lungs clear to auscultation bilaterally Cardiovascular Rate/Rhythm: regular rate and regular rhythm Testing Laboratory Results 10/14/22 15:01
[2022-10-14] MEDS ORDERED: diphenhydrAMINE 50 MG/ML VIAL IV PRN (16:14)
[2022-10-14] MEDS ORDERED: NALBUPHINE HCL INJ 10 MG/ML AMP IV PRN (16:14)
[2022-10-14] MEDS ORDERED: NALOXONE HCL 0.4 MG/1 ML VIAL/CARP IV PRN (16:14)
[2022-10-14] MEDS ORDERED: ONDANSETRON INJ 2 MG/ML 2 ML VIAL IV PRN (16:14)
[2022-10-14] MEDS ORDERED: NALOXONE HCL 1 MG in SODIUM CHLORIDE 0.9% 1000ML 1,000 ML IV PRN (16:14)
[2022-10-14] MEDS ORDERED: fentaNYL 2MCG/ML ROPIVACAINE 1.25MG/ML 100 ML BAG EPI PRN (16:14)
[2022-10-14] MEDS ORDERED: ePHEDrine sulfate 50 MG/ML AMP IV PRN (16:14)
[2022-10-14] MEDS ORDERED: Nursing to Pharmacy Communication SCH (18:00)
[2022-10-14] MEDS ORDERED: ROPIVACAINE 0.5% 5 MG/ML 30 ML VIAL ONE (18:06)
--- NOTE | 2022-10-14 18:14 | Communication Note ---
Date of Service: October 14, 2022 pt c/o diffuse lower abdominal pain. bolus 100 mcg fentanyl, 3 cc 0.5% ropivicaine, 3 cc 2% lidocaine with epi. vss
[2022-10-14] MEDS ORDERED: METHYLERGONOVINE MALEATE 0.2 MG/ML AMP ONE (18:50)
--- NOTE | 2022-10-14 19:03 | Anesthesia Procedure Note ---
Date of Service October 14, 2022 Anesthesia Post Epidural Note Vital Signs Vital Signs: Temp Pulse Resp BP Pulse Ox 36.7 C 80 20 125/60 100 10/14/22 16:40 10/14/22 19:00 10/14/22 18:00 10/14/22 19:00 10/14/22 18:58 Pain Intensity Bilateral Abdomen: Pain Intensity: 7 Notes Mental Status: alert / awake / arousable and participated in evaluation Nausea / Vomiting: adequately controlled Pain: adequately controlled Airway Patency, RR, SpO2: stable & adequate BP & HR: stable & adequate Hydration State: stable & adequate Neuraxial Anesthesia: was administered and sensory block is resolving Anesthetic Complications: no major complications apparent and Pt Satisfied with anesthetic care Epidural: Removed without complications and With tip intact
--- NOTE | 2022-10-14 19:07 | Delivery Summary ---
Vaginal Delivery Summary Date of Service October 14, 2022 Vaginal Delivery Summary and 2nd Degree LAC PREOPERATIVE DIAGNOSIS: 1. Single intrauterine at 40 3/7 wga 2. Labor POSTOPERATIVE DIAGNOSIS: 1. Single intrauterine at 40 3/7 wga 2. Labor 3. Delivered PROCEDURE: 1. Normal spontaneous vaginal delivery. SURGEON: Cassie Bledsoe MD ANESTHESIA: Epidural. ESTIMATED BLOOD LOSS: 300 mL FLUIDS: Continuous LR. URINE OUTPUT: None. COMPLICATIONS: None. CONDITION: Stable. INDICATIONS: 32 yo at 40 3/7 wga presented today with contractions. Initially graced over 4 hours and made minimal change around 2.5cm and discharged home. Returned later in the afternoon with worsening contractions and found to be 5cm. She received an epidural for pain control and progressed spontaneously to complete and desired to push. AROM of forebag performed just prior to pushing. FINDINGS: A viable male , weight pending with Apgars of 8 and 9 at 1 and 5 minutes respectively. SPECIMEN: Cord blood. OPERATIVE REPORT: The patient progressed to 10 cm, 100% effaced and +2 station, pushed over intact perineum with anesthesia to deliver a viable male infant, weight and Apgars as above. Head of delivered in CANDICE position. Loose nuchal cord x 2 and body cord were noted and delivered through. Body and shoulders were delivered without difficulty. was delivered to maternal abdomen and nursing staff. Delayed cord clamping was performed for 60 seconds. Cord was clamped and cut. Cord blood was obtained. Placenta delivered spontaneously intact with 3-vessel cord. IV oxytocin and fundal massage were given but lower uterine atony was noted. Methergine was then given for excellent hemostasis. Vagina, cervix, perineum, and placenta were inspected. A second degree laceration was noted and repaired in the usual fashion with 3-0 vicryl. Sponge and needle counts correct x2. No sponges were left behind. Mother and stable in immediate period. [facility] Vaginal Delivery Charge Vaginal Delivery Codes: 24282 global code for the antepartum, delivery, and post- Delivery Type Details: and 2nd Degree LAC
[2022-10-14] MEDS ORDERED: bisacodyL 10 MG SUPP PR PRN (19:20)
[2022-10-14] MEDS ORDERED: DIPHTHERIA/TETANUS/PERTUSSIS 0.5 ML SYR/VIAL IM ONE (19:20)
[2022-10-14] MEDS ORDERED: BENZOCAINE 20% AER SPR 82.5 GM CAN EXT PRN (19:20)
[2022-10-14] MEDS ORDERED: METHYLERGONOVINE MALEATE 0.2 MG/ML AMP IM ONE (19:20)
[2022-10-14] MEDS ORDERED: MEASLES, MUMPS & RUBELLA VIRUS VIAL SQ ONE (19:20)
[2022-10-14] MEDS ORDERED: HYDROCORTISONE ACETATE 25 MG SUPP PR PRN (19:20)
[2022-10-14] MEDS ORDERED: ACETAMINOPHEN 325 MG TAB PO PRN (19:20)
[2022-10-14] MEDS ORDERED: IBUPROFEN 600 MG TAB PO PRN (19:20)
[2022-10-14] MEDS: DOCUSATE SODIUM 100 MG CAP PO SCH (22:31)
--- NOTE | 2022-10-15 04:47 | Obstetrical Progress Note ---
Date of Service October 15, 2022 Assessment & Plan (1) care following vaginal delivery: (2) Vaginal delivery: Plan - Overall, feeling well and eating well today - feeding going well without concern - Urinating and passing gas appropriately - Ambulating well within room - Vitals stable and wnl - Pain 0/10 - Hgb 12.2 on 10/14 - Routine PP care progressing well - Anticipate discharge at 24-48 hours - Recommending f/u outpatient in 6 weeks Admission and Anticipated Discharge Date Admission Date: October 14, 2022 Supervising Physician Co-Signing Physician Notes Resident Physician Supervision Note: I interviewed and examined the patient. Discussed with Dr. Rosas and agree with findings and plan as documented in the note. Any exceptions or clarifications are listed here: PP1 s/p , doing well. VSS, exam benign and wnl. Continue rout pp care Documented By: Cassie Bledsoe MD Subjective Patient is a 32 y/o female who is PPD #1 following delivery of a male at 40w3d. She reports feeling well overall this morning, she states she is in minimal pain. - Ambulation - well throughout room - Voiding/Laird - independent voids, no dysuria or pressure - Gas/Stool - passing gas, no bowel movement - Diet - regular, no nausea or emesis - Lochia - diminishing, moderate amount - Infant Feeding Type - breast feeding, no concerns - Pain Level - 0/10, no current medications Review of Systems - Denies fever, chills, sweats - Denies shortness of breath, difficulty breathing, chest pain, palpitations, chest pressure - Denies breast pain - Denies dysuria - Denies headache or changes in vision. Physical Exam Physical Exam: General: Alert, oriented. No acute distress. Cardiac: RRR, normal S1/S2, no murmurs/rubs/gallops. Respiratory: Non-labored, CTAB, no wheezes/rales/rhonchi. Symmetric chest rise. Abdomen: Soft, nontender, nondistended. Bowel sounds present. Uterus: Uterine fundus firm, palpable 2 cm below umbilicus. Lower Extremities: No lower extremity edema or swelling. No deep calf pain. Mrajan's negative bilaterally. Results & Data ([facility]) Vital Signs (Past 12 Hours) Vital Signs Temp Pulse Pulse Resp BP BP Pulse Ox 10/15/22 03:10 36.6 C 64 18 111/61 97 10/14/22 23:00 36.6 C 77 18 113/67 97 10/14/22 21:45 113 H 10/14/22 21:45 145/75 H 10/14/22 21:29 82 10/14/22 21:29 118/61 10/14/22 21:15 88 10/14/22 21:15 115/59 L 10/14/22 21:00 78 10/14/22 21:00 118/57 L 10/14/22 20:45 89 10/14/22 20:45 127/61 10/14/22 20:30 72 10/14/22 20:30 121/61 10/14/22 20:15 74 10/14/22 20:15 123/60 10/14/22 20:00 77 10/14/22 20:00 120/72 10/14/22 19:45 77 10/14/22 19:45 121/55 L 10/14/22 19:30 82 10/14/22 19:30 130/60 10/14/22 19:15 78 10/14/22 19:15 123/59 L 10/14/22 19:00 80 10/14/22 19:00 125/60 10/14/22 18:58 100 10/14/22 18:58 91 H 10/14/22 18:53 100 10/14/22 18:53 92 H 10/14/22 18:48 100 10/14/22 18:48 102 H 10/14/22 18:47 105 H 10/14/22 18:47 124/56 L 10/14/22 18:43 96 10/14/22 18:43 114 H 10/14/22 18:38 96 10/14/22 18:38 118 H 10/14/22 18:33 97 10/14/22 18:33 112 H 10/14/22 18:28 97 10/14/22 18:28 112 H 10/14/22 18:23 97 10/14/22 18:23 108 H 10/14/22 18:18 96 10/14/22 18:18 102 H 10/14/22 18:14 109 H 10/14/22 18:14 144/77 H 10/14/22 18:13 97 10/14/22 18:13 80 10/14/22 18:08 97 10/14/22 18:08 76 10/14/22 18:03 97 10/14/22 18:03 81 10/14/22 18:00 20 10/14/22 18:00 20 10/14/22 18:00 112 H 10/14/22 18:00 137/57 L 10/14/22 17:58 98 10/14/22 17:58 70 10/14/22 17:53 97 10/14/22 17:53 73 10/14/22 17:48 98 10/14/22 17:48 120 H 10/14/22 17:47 93 10/14/22 17:47 73 10/14/22 17:44 78 10/14/22 17:44 121/59 L 10/14/22 17:43 99 10/14/22 17:43 86 10/14/22 17:38 98 10/14/22 17:38 78 10/14/22 17:35 93 10/14/22 17:35 65 10/14/22 17:33 97 10/14/22 17:33 96 H 10/14/22 17:29 86 10/14/22 17:29 145/68 H 10/14/22 17:28 99 10/14/22 17:28 106 H 10/14/22 17:25 94 10/14/22 17:25 68 10/14/22 17:23 96 10/14/22 17:23 72 10/14/22 17:18 96 10/14/22 17:18 68 10/14/22 17:13 99 10/14/22 17:13 64 10/14/22 17:13 129/73 10/14/22 17:08 97 10/14/22 17:08 65 10/14/22 17:03 99 10/14/22 17:03 74 10/14/22 17:00 20 10/14/22 17:00 20 10/14/22 16:58 99 10/14/22 16:57 61 10/14/22 16:58 64 10/14/22 16:57 121/68 10/14/22 16:53 98 10/14/22 16:53 64 10/14/22 16:48 98 10/14/22 16:48 67 O2 Del Method 10/15/22 03:10 Room Air 10/14/22 23:00 Room Air 10/14/22 21:45 10/14/22 21:45 10/14/22 21:29 10/14/22 21:29 10/14/22 21:15 10/14/22 21:15 10/14/22 21:00 10/14/22 21:00 10/14/22 20:45 10/14/22 20:45 10/14/22 20:30 10/14/22 20:30 10/14/22 20:15 10/14/22 20:15 10/14/22 20:00 10/14/22 20:00 10/14/22 19:45 10/14/22 19:45 10/14/22 19:30 10/14/22 19:30 10/14/22 19:15 10/14/22 19:15 10/14/22 19:00 10/14/22 19:00 10/14/22 18:58 10/14/22 18:58 10/14/22 18:53 10/14/22 18:53 10/14/22 18:48 10/14/22 18:48 10/14/22 18:47 10/14/22 18:47 10/14/22 18:43 10/14/22 18:43 10/14/22 18:38 10/14/22 18:38 10/14/22 18:33 10/14/22 18:33 10/14/22 18:28 10/14/22 18:28 10/14/22 18:23 10/14/22 18:23 10/14/22 18:18 10/14/22 18:18 10/14/22 18:14 10/14/22 18:14 10/14/22 18:13 10/14/22 18:13 10/14/22 18:08 10/14/22 18:08 10/14/22 18:03 10/14/22 18:03 10/14/22 18:00 10/14/22 18:00 10/14/22 18:00 10/14/22 18:00 10/14/22 17:58 10/14/22 17:58 10/14/22 17:53 10/14/22 17:53 10/14/22 17:48 10/14/22 17:48 10/14/22 17:47 10/14/22 17:47 10/14/22 17:44 10/14/22 17:44 10/14/22 17:43 10/14/22 17:43 10/14/22 17:38 10/14/22 17:38 10/14/22 17:35 10/14/22 17:35 10/14/22 17:33 10/14/22 17:33 10/14/22 17:29 10/14/22 17:29 10/14/22 17:28 10/14/22 17:28 10/14/22 17:25 10/14/22 17:25 10/14/22 17:23 10/14/22 17:23 10/14/22 17:18 10/14/22 17:18 10/14/22 17:13 10/14/22 17:13 10/14/22 17:13 10/14/22 17:08 10/14/22 17:08 10/14/22 17:03 10/14/22 17:03 10/14/22 17:00 10/14/22 17:00 10/14/22 16:58 10/14/22 16:57 10/14/22 16:58 10/14/22 16:57 10/14/22 16:53 10/14/22 16:53 10/14/22 16:48 10/14/22 16:48 Resident Activity Tracking Resident Involvement: Resident Care Provided Care Provided: OB Delivery
[2022-10-15 07:00] LABS: Hematocrit (blood only) 30.1 % (34.1-44.9); Hemoglobin 10.3 g/dl (12.0-16.0); Mean Corpuscular Hemoglobin 29.9 pg (25.0-34.0); Mean Corpuscular Hgb Conc 34.2 g/dL (32.0-36.0); Mean Corpuscular Volume 87.5 fL (80.0-100.0); Mean Platelet Volume 11.5 fL (9.4-12.3); Platelet Count 262 K/uL (130-400); RDW Coefficient of Variation 14.1 % (11.5-14.5); RDW Standard Deviation 44.3 fL (36.4-46.3); Red Blood Count 3.44 M/uL (3.93-5.22); White Blood Count 15.45 K/ul (4.8-10.8)
[2022-10-15] MEDS ORDERED: FERROUS SULFATE 325 MG TAB PO SCH (08:00)
[2022-10-15] MEDS ORDERED: PRENATAL VITAMIN 1 TAB PO SCH (08:00)
[2022-10-15] MEDS: DOCUSATE SODIUM 100 MG CAP PO SCH ×2 (08:42→21:01)
[2022-10-15] MEDS ORDERED: bisacodyL 5 MG TABEC PO SCH (20:00)
== END 2022-10-15 21:50 | disposition home or self-care (01) | DRG 807 ==
LOC: OPB 14:34 → 4S1 14:37 → 4E2 22:35